=== PATIENT | female | born 1955 | race Caucasian/White ===

== ENCOUNTER 2017-03-30 20:15 | Inpatient (IN) | payer MEDICARE, MEDICAID ==
[~2017-03-30] VITALS: Ht 167.6 cm; Wt 94.6 kg
[~2017-03-30 20:15] MED LIST: ATOR1TAB PO; CHOL20009 PO; CYCL5TAB PO; FENO1TAB42 OR; FURO20TA3 PO; GABA-339 PO; HYDR-3682 PO; INSUINJ7 IJ; LEVEMIR SC; LOSA25TA9 PO; LOSA50TA6 PO; METO-159 PO; METR500T PO; OXYC10TA44 PO; SIMV80TA73 PO
[2017-03-30 21:40] LABS: Basophils # (auto) 0.1 uL; Basophils % (auto) 0.6 % (0.0-2.0); Eosinophils # (auto) 0.2 uL; Hematocrit 42.8 % (36.0-46.0); Hemoglobin 14.5 g/dL (12.2-16.2); Lymphocytes # (auto) 1.3 uL; Lymphocytes % (auto) 14.9 % (10.0-50.0); Mean Corpuscular Hemoglobin 31.7 pg (28.0-32.0); Mean Corpuscular Hgb Conc. 33.9 g/dL (32.0-36.0); Mean Corpuscular Volume 93.4 fL (80.0-100.0); Monocytes # (auto) 0.6 uL; Monocytes % (auto) 6.6 % (0.0-12.0); Neutrophils # (auto) 6.4 uL; Neutrophils % (auto) 75.9 % (37.0-80.0); Platelet Count (auto) 220 10^3/uL (140-450); Red Blood Cells 4.58 10^6/uL (4.0-5.20); Red Cell Distribution Width 13.6 % (11.8-14.3); White Blood Cell 8.4 10^3/uL (4.4-10.8)
[2017-03-30 21:58] LABS: Albumin 4.6 g/dL (3.4-5.0); Anion Gap 14 (5-15); BUN/Creatinine Ratio 31.4; Blood Urea Nitrogen 64 mg/dL (7-18); Calcium 10.4 mg/dL (8.5-10.1); Carbon Dioxide 17 mmol/L (21-32); Chloride 104 mmol/L (98-107); GFR African American 32 mL/min; GFR Non-African American 26 mL/min; Glucose 259 mg/dL (74-106); Potassium 3.7 mmol/L (3.5-5.1); Sodium 135 mmol/L (136-145)
[2017-03-30 22:02] LABS: INR 1.02 (0.9-1.15); Partial Thromboplastin Time 24.7 sec (22.64-33.71); Prothrombin Time 11.1 sec (9.37-12.3)
[2017-03-30 22:12] LABS: Alanine Aminotransferase 35 U/L (13-56); Alkaline Phosphatase 64 U/L (45-117); Aspartate Aminotransferase 23 U/L (15-37); Bilirubin, Total 0.6 mg/dL (0.2-1.0); Total Protein 8.8 g/dL (6.4-8.2)
[2017-03-31] MEDS ORDERED: SODIUM CHLORIDE 0.9% 1,000 ML IV ONE (02:45)
[2017-03-31] MEDS ORDERED: ALUM & MAG HYDROX-SIMETH LIQ(MAALOX) 30 ML PO ONE (03:45)
[2017-03-31] MEDS ORDERED: ONDANSETRON HCL 4 MG/2 ML VIAL ONE (05:38)
[2017-03-31] MEDS ORDERED: HYDROcodone-ACET 5/325MG TAB PO ONE (05:45)
[2017-03-31] MEDS ORDERED: ACETAMINOPHEN 500 MG TAB PO PRN (06:30)
[2017-03-31] MEDS: SODIUM CHLORIDE 0.9% 1,000 ML IV SCH ×3 (06:34→22:00)
[2017-03-31] MEDS ORDERED: DEXTROSE (50%) 50ML SYRG IV PRN (07:15)
[2017-03-31] MEDS ORDERED: MORPHINE SULFATE 10 MG/ML INJ 1ML SDV IV PRN (07:15)
[2017-03-31] MEDS: METOPROLOL TARTRATE 50 MG TAB PO SCH ×2 (11:18→21:23)
[2017-03-31] MEDS: ASPirin-EC 81 mg tab PO SCH (11:18)
[2017-03-31] MEDS: ACCU-CHEK COMFORT CURVE STRIP VI SCH ×3 (11:40→21:25)
[2017-03-31] MEDS: InsuLIN REG 1unit/0.01ml Soln (100units/ml) SC SCH ×3 (11:44→21:25)
[2017-03-31] MEDS: ONDANSETRON HCL 4 MG/2 ML VIAL IV PRN ×2 (12:34→23:56)
[2017-03-31] MEDS: metroNIDAZOLE 500MG/100ML 100 ML IV SCH ×2 (16:17→21:23)
[2017-03-31] MEDS: HYDROcodone-ACET 5/325MG TAB PO PRN (21:23)
[2017-03-31 21:30] VITALS: BP 128/83
[2017-04-01] MEDS ORDERED: MILK OF MAGNESIA 30ML SUSP PO ONE (00:15)
[2017-04-01 05:00] VITALS: BP 101/56
[2017-04-01] MEDS: ACCU-CHEK COMFORT CURVE STRIP VI SCH ×4 (05:56→22:29)
[2017-04-01] MEDS: InsuLIN REG 1unit/0.01ml Soln (100units/ml) SC SCH ×4 (05:57→22:44)
[2017-04-01] MEDS: metroNIDAZOLE 500MG/100ML 100 ML IV SCH ×4 (05:57→23:44)
[2017-04-01 06:29] LABS: Basophils # (auto) 0 uL; Basophils % (auto) 0.7 % (0.0-2.0); Eosinophils # (auto) 0.1 uL; Eosinophils % (auto) 2.5 % (0.0-7.0); Hematocrit 33.6 % (36.0-46.0); Hemoglobin 11.5 g/dL (12.2-16.2); Lymphocytes # (auto) 1.4 uL; Lymphocytes % (auto) 32.8 % (10.0-50.0); Mean Corpuscular Hemoglobin 31.9 pg (28.0-32.0); Mean Corpuscular Hgb Conc. 34.2 g/dL (32.0-36.0); Mean Corpuscular Volume 93.4 fL (80.0-100.0); Monocytes # (auto) 0.4 uL; Monocytes % (auto) 8.7 % (0.0-12.0); Neutrophils # (auto) 2.4 uL; Neutrophils % (auto) 55.3 % (37.0-80.0); Nucleated Red Blood Cells % 0.1 %; Platelet Count (auto) 145 10^3/uL (140-450); Red Cell Distribution Width 13.7 % (11.8-14.3); White Blood Cell 4.4 10^3/uL (4.4-10.8)
[2017-04-01 06:43] LABS: Alanine Aminotransferase 20 U/L (13-56); Albumin 3.3 g/dL (3.4-5.0); Alkaline Phosphatase 52 U/L (45-117); Anion Gap 6 (5-15); Aspartate Aminotransferase 10 U/L (15-37); BUN/Creatinine Ratio 23.7; Bilirubin, Total 0.4 mg/dL (0.2-1.0); Blood Urea Nitrogen 37 mg/dL (7-18); Calcium 8.4 mg/dL (8.5-10.1); Carbon Dioxide 22 mmol/L (21-32); Chloride 113 mmol/L (98-107); Cholesterol 106 mg/dL (< 200); GFR African American 43 mL/min; GFR Non-African American 36 mL/min; Glucose 146 mg/dL (74-106); HDL Cholesterol 24 mg/dL (40-59); LDL Cholesterol 65 mg/dL (< 100); Magnesium 2.1 mg/dL (1.6-2.6); Potassium 3.7 mmol/L (3.5-5.1); Sodium 141 mmol/L (136-145); Total Protein 6.4 g/dL (6.4-8.2); Triglycerides 221 mg/dL (< 150)
[2017-04-01 08:00] VITALS: BP 126/65
[2017-04-01 09:00] VITALS: BP 126/65
[2017-04-01] MEDS: METOPROLOL TARTRATE 50 MG TAB PO SCH ×2 (09:48→22:29)
[2017-04-01] MEDS: ASPirin-EC 81 mg tab PO SCH (09:49)
[2017-04-01] MEDS: SODIUM CHLORIDE 0.9% 1,000 ML IV SCH ×2 (11:33→12:11)
[2017-04-01] MEDS: VANCOMYCIN HCL 125MG/5ML ORAL SOL PO SCH ×3 (11:47→22:29)
[2017-04-01] MEDS: PROMETHAZINE HCL 25 MG/ML 1ML IV PRN ×2 (12:21→22:28)
[2017-04-01 13:00] VITALS: BP 108/70
[2017-04-01 17:00] VITALS: BP 98/47
[2017-04-01 22:00] VITALS: BP 114/63
[2017-04-01] MEDS: HYDROcodone-ACET 5/325MG TAB PO PRN (22:28)
[2017-04-02] MEDS: SODIUM CHLORIDE 0.9% 1,000 ML IV SCH ×2 (04:07→16:36)
[2017-04-02 05:00] VITALS: BP 121/76
[2017-04-02] MEDS: metroNIDAZOLE 500MG/100ML 100 ML IV SCH ×3 (06:12→17:25)
[2017-04-02] MEDS: VANCOMYCIN HCL 125MG/5ML ORAL SOL PO SCH ×4 (06:12→22:14)
[2017-04-02] MEDS: InsuLIN REG 1unit/0.01ml Soln (100units/ml) SC SCH ×4 (06:13→22:27)
[2017-04-02] MEDS: ACCU-CHEK COMFORT CURVE STRIP VI SCH ×4 (06:13→22:15)
[2017-04-02] MEDS: PROMETHAZINE HCL 25 MG/ML 1ML IV PRN ×3 (06:13→18:33)
[2017-04-02 07:10] LABS: BUN/Creatinine Ratio 18.2; Calcium 9.3 mg/dL (8.5-10.1); Potassium 4.6 mmol/L (3.5-5.1)
[2017-04-02 08:00] VITALS: BP 102/42
[2017-04-02 09:00] VITALS: BP 102/42
[2017-04-02] MEDS: METOPROLOL TARTRATE 50 MG TAB PO SCH (10:18)
[2017-04-02] MEDS: ASPirin-EC 81 mg tab PO SCH (10:18)
[2017-04-02 13:00] VITALS: BP 149/71
[2017-04-02 16:44] VITALS: BP 142/79
[2017-04-02] MEDS: ONDANSETRON HCL 4 MG/2 ML VIAL IV PRN (17:26)
[2017-04-02 22:02] VITALS: BP 147/76
[2017-04-02] MEDS: HYDROcodone-ACET 5/325MG TAB PO PRN (22:27)
[2017-04-03] VITALS (7 sets, daily range): BP systolic 127–151; BP diastolic 56–85
[2017-04-03] MEDS: metroNIDAZOLE 500MG/100ML 100 ML IV SCH ×4 (00:23→17:44)
[2017-04-03 05:59] LABS: Basophils # (auto) 0 uL; Basophils % (auto) 0.8 % (0.0-2.0); Eosinophils # (auto) 0.1 uL; Eosinophils % (auto) 2.6 % (0.0-7.0); Hematocrit 31.1 % (36.0-46.0); Hemoglobin 10.7 g/dL (12.2-16.2); Lymphocytes # (auto) 1.6 uL; Lymphocytes % (auto) 38.6 % (10.0-50.0); Mean Corpuscular Hemoglobin 31.9 pg (28.0-32.0); Mean Corpuscular Hgb Conc. 34.5 g/dL (32.0-36.0); Mean Corpuscular Volume 92.4 fL (80.0-100.0); Monocytes # (auto) 0.3 uL; Monocytes % (auto) 6.9 % (0.0-12.0); Neutrophils # (auto) 2.2 uL; Neutrophils % (auto) 51.1 % (37.0-80.0); Nucleated Red Blood Cells % 0.1 %; Platelet Count (auto) 126 10^3/uL (140-450); Red Blood Cells 3.36 10^6/uL (4.0-5.20); Red Cell Distribution Width 13.6 % (11.8-14.3); White Blood Cell 4.2 10^3/uL (4.4-10.8)
[2017-04-03 06:15] LABS: BUN/Creatinine Ratio 14.4; Calcium 7.9 mg/dL (8.5-10.1); Magnesium 1.8 mg/dL (1.6-2.6); Potassium 3.4 mmol/L (3.5-5.1)
[2017-04-03] MEDS: VANCOMYCIN HCL 125MG/5ML ORAL SOL PO SCH ×4 (06:19→22:43)
[2017-04-03] MEDS: ACCU-CHEK COMFORT CURVE STRIP VI SCH ×4 (06:19→22:43)
[2017-04-03] MEDS: SODIUM CHLORIDE 0.9% 1,000 ML IV SCH ×2 (06:19→10:40)
[2017-04-03] MEDS: InsuLIN REG 1unit/0.01ml Soln (100units/ml) SC SCH ×4 (06:49→22:43)
[2017-04-03] MEDS: ASPirin-EC 81 mg tab PO SCH (09:40)
[2017-04-03] MEDS ORDERED: POTASSIUM CHL 20 Meq TABLET PO ONE (10:30)
[2017-04-03] MEDS ORDERED: MAGNESIUM SULFATE 1GM/100ML 100 ML IV ONE (10:30)
[2017-04-03] MEDS: PROMETHAZINE HCL 25 MG/ML 1ML IV PRN (12:12)
[2017-04-03] MEDS: ONDANSETRON HCL 4 MG/2 ML VIAL IV PRN (22:43)
[2017-04-04] VITALS (7 sets, daily range): BP systolic 126–155; BP diastolic 67–82
[2017-04-04] MEDS: metroNIDAZOLE 500MG/100ML 100 ML IV SCH ×4 (00:38→17:58)
[2017-04-04 05:42] LABS: Hemoglobin 11.7 g/dL (12.2-16.2)
[2017-04-04] MEDS: PROMETHAZINE HCL 25 MG/ML 1ML IV PRN ×2 (05:43→17:58)
[2017-04-04] MEDS: VANCOMYCIN HCL 125MG/5ML ORAL SOL PO SCH ×4 (05:43→21:58)
[2017-04-04 06:00] LABS: BUN/Creatinine Ratio 12.9; Calcium 8.4 mg/dL (8.5-10.1); Magnesium 1.9 mg/dL (1.6-2.6); Potassium 3.7 mmol/L (3.5-5.1)
[2017-04-04] MEDS: InsuLIN REG 1unit/0.01ml Soln (100units/ml) SC SCH ×4 (06:30→21:58)
[2017-04-04] MEDS: SODIUM CHLORIDE 0.9% 1,000 ML IV SCH (06:30)
[2017-04-04] MEDS: ACCU-CHEK COMFORT CURVE STRIP VI SCH ×4 (06:31→21:58)
[2017-04-04] MEDS: HYDROcodone-ACET 5/325MG TAB PO PRN (21:59)
[2017-04-05] MEDS: metroNIDAZOLE 500MG/100ML 100 ML IV SCH ×3 (00:12→11:54)
[2017-04-05] MEDS: SODIUM CHLORIDE 0.9% 1,000 ML IV SCH (02:34)
[2017-04-05 05:00] VITALS: BP 149/80
[2017-04-05] MEDS: VANCOMYCIN HCL 125MG/5ML ORAL SOL PO SCH ×2 (06:00→11:55)
[2017-04-05] MEDS: InsuLIN REG 1unit/0.01ml Soln (100units/ml) SC SCH ×2 (06:38→12:00)
[2017-04-05] MEDS: ACCU-CHEK COMFORT CURVE STRIP VI SCH ×2 (06:38→12:00)
[2017-04-05 08:00] VITALS: BP 143/81
[2017-04-05 09:00] VITALS: BP 143/81
[2017-04-05] MEDS: PROMETHAZINE HCL 25 MG/ML 1ML IV PRN (11:54)
[2017-04-05 13:00] VITALS: BP 143/84
[2017-04-05 13:33] VITALS: BP 143/84
== END 2017-04-05 14:10 | disposition home or self-care (01) | DRG 371 ==
LOC: ER 20:15 → OVERFLOW 20:16 → WEST WING 03-31 14:30
PROVIDERS: ADMIT Nurse Practitioner Family; ATTEND Internal Medicine
DX: A04.71 Enterocolitis due to Clostridium difficile, recurrent (principal); G93.41 Metabolic encephalopathy; N17.0 Acute kidney failure with tubular necrosis; E11.21 Type 2 diabetes mellitus with diabetic nephropathy; E11.22 Type 2 diabetes mellitus with diabetic chronic kidney disease; E11.65 Type 2 diabetes mellitus with hyperglycemia; E66.9 Obesity, unspecified; E78.5 Hyperlipidemia, unspecified; E86.0 Dehydration; I12.9 Hypertensive chronic kidney disease with stage 1 through stage 4 chronic kidney disease, or unspecified chronic kidney disease; I25.10 Atherosclerotic heart disease of native coronary artery without angina pectoris; M54.9 Dorsalgia, unspecified; G89.29 Other chronic pain; K29.00 Acute gastritis without bleeding; K57.30 Diverticulosis of large intestine without perforation or abscess without bleeding; N18.9 Chronic kidney disease, unspecified; N20.0 Calculus of kidney; Z79.4 Long term (current) use of insulin; Z79.899 Other long term (current) drug therapy; Z82.49 Family history of ischemic heart disease and other diseases of the circulatory system; Z83.3 Family history of diabetes mellitus; Z86.19 Personal history of other infectious and parasitic diseases; Z90.710 Acquired absence of both cervix and uterus; Z88.8 Allergy status to other drugs, medicaments and biological substances; Z90.49 Acquired absence of other specified parts of digestive tract
CPT/HCPCS: 36415; 71045; 74176; 80048; 80053; 80061; 82962; 83036; 83690; 83735; 83880; 84484; 85014; 85018; 85025; 85610; 85730; 87045; 87493; 87899; 93005; 96361; 96374; J1815; J2405; J3490

== ENCOUNTER 2019-04-24 18:23 | Inpatient (IN) | payer MEDICARE, MEDICAID ==
[~2019-04-24] VITALS: Ht 167.6 cm; Wt 65.9 kg
[~2019-04-24 18:23] MED LIST changes: +FENO145T27 OR; -FENO1TAB42 OR; +LOSA-69 PO; +LOSA25TA38 PO; -LOSA25TA9 PO; -LOSA50TA6 PO
[2019-04-24] MEDS ORDERED: IPRATROPIUM BROM 0.5 MG/2.5ML INH SOL NEB ONE (18:45)
[2019-04-24] MEDS ORDERED: FUROSEMIDE 40 MG/4 ML VIAL IV ONE (18:45)
[2019-04-24] MEDS ORDERED: ALBUTEROL SULF 2.5 MG/0.5ML(0.5%) NEB SOLN NEB ONE (18:45)
[2019-04-24 19:13] LABS: INR 0.98 (0.9-1.15); Partial Thromboplastin Time 26.8 sec (23.64-32.05)
[2019-04-24 19:14] LABS: Basophils # (auto) 0 uL; Basophils % (auto) 0.2 % (0.0-2.0); Eosinophils # (auto) 0 uL; Hematocrit 42.2 % (36.0-46.0); Hemoglobin 13.8 g/dL (12.2-16.2); Lymphocytes # (auto) 0.4 uL; Mean Corpuscular Hemoglobin 31.2 pg (28.0-32.0); Mean Corpuscular Hgb Conc. 32.8 g/dL (32.0-36.0); Mean Corpuscular Volume 94.9 fL (80.0-100.0); Monocytes # (auto) 0.7 uL; Monocytes % (auto) 7.8 % (0.0-12.0); Neutrophils # (auto) 8.3 uL; Nucleated Red Blood Cells % 0.1 %; Platelet Count (auto) 183 10^3/uL (140-450); Red Blood Cells 4.44 10^6/uL (4.0-5.20); Red Cell Distribution Width 14.1 % (11.8-14.3); White Blood Cell 9.4 10^3/uL (4.4-10.8)
[2019-04-24 19:25] LABS: Albumin 3.2 g/dL (3.4-5.0); Anion Gap 13 (5-15); Blood Urea Nitrogen 45 mg/dL (7-18); Calcium 9.9 mg/dL (8.5-10.1); Carbon Dioxide 20 mmol/L (21-32); Chloride 95 mmol/L (98-107); Magnesium 2.3 mg/dL (1.6-2.6); Potassium 4.5 mmol/L (3.5-5.1); Sodium 128 mmol/L (136-145)
[2019-04-24 19:33] LABS: Alanine Aminotransferase 33 U/L (13-56); Alkaline Phosphatase 72 U/L (45-117); Aspartate Aminotransferase 35 U/L (15-37); BUN/Creatinine Ratio 21.6; Bilirubin, Total 0.5 mg/dL (0.2-1.0); GFR African American 31 mL/min; GFR Non-African American 26 mL/min; Total Protein 8.6 g/dL (6.4-8.2)
[2019-04-24 19:35] LABS: Glucose 574 mg/dL (74-106)
[2019-04-24] MEDS ORDERED: InsuLIN REG 1unit/0.01ml Soln (100units/ml) IV ONE ×2 (19:45→23:45)
[2019-04-24] MEDS ORDERED: SODIUM CHLORIDE 0.9% 1,000 ML IV ONE (19:45)
[2019-04-24 20:03] LABS: Lactic Acid w/Reflex 2.9 mmol/L (0.4-2.0)
[2019-04-24] MEDS ORDERED: ETOMIDATE (2MG/ML) 20ML VIAL IV ONE ×2 (20:24→20:30)
[2019-04-24] MEDS ORDERED: SUCCINYLCHOLINE CHLORIDE 20 MG/ML 10ML VIAL IV ONE ×2 (20:24→20:30)
[2019-04-24] MEDS ORDERED: PROPOFOL 100 ML IV ONE (20:24)
[2019-04-24] MEDS ORDERED: SODIUM CHLORIDE 0.9% 2,250 ML IV ONE (20:30)
[2019-04-24] MEDS: PROPOFOL 100 ML IV SCH (20:36)
[2019-04-24 20:40] VITALS: BP 160/90
[2019-04-24] MEDS ORDERED: PIPERACILLIN-TAZOB 3.375GM 100 ML IV ONE (20:45)
[2019-04-24] MEDS ORDERED: VANCOMYCIN PER PHARMACY 0 MG IV SCH (20:45)
[2019-04-24] MEDS ORDERED: MIDAZOLAM DRIP 50 mg/50mL 50 ML IV ONE (20:56)
[2019-04-24] MEDS: MIDAZOLAM DRIP 50 mg/50mL 50 ML IV SCH ×2 (20:59→21:57)
[2019-04-24] MEDS ORDERED: VANCOMYCIN 1GM/250ML 250 ML IV ONE (21:15)
[2019-04-24] MEDS ORDERED: NOREPINEPHRINE 8 MG/250ML KIT 250 ML IV ONE (22:06)
[2019-04-24] MEDS: NOREPINEPHRINE 8 MG/250ML KIT 250 ML IV SCH (22:16)
[2019-04-24 22:39] VITALS: BP 108/73
[2019-04-24 23:26] LABS: Urine Amorphous Crystal FEW /hpf (None Seen); Urine Bacteria FEW /hpf (None Seen); Urine Blood Negative /uL (Negative); Urine Hyaline Cast FEW /lpf (0 - 2); Urine Specific Gravity 1.019 (1.001-1.035); Urine WBC 2 /hpf (0 - 5)
[2019-04-25] VITALS (43 sets, daily range): BP systolic 96–134; BP diastolic 51–72
[2019-04-25] MEDS ORDERED: DEXTROSE (50%) 50ML SYRG IV PRN (01:45)
[2019-04-25] MEDS ORDERED: NITROGLYCERIN 0.4 MG SL TAB SL PRN (01:45)
[2019-04-25] MEDS ORDERED: MORPHINE SULFATE 4 MG/ML SYR/VIAL IV PRN (01:45)
[2019-04-25] MEDS ORDERED: ONDANSETRON HCL 4 MG/2 ML VIAL IV PRN (01:45)
[2019-04-25 01:57] LABS: Lactic Acid w/Reflex 2.2 mmol/L (0.4-2.0)
[2019-04-25] MEDS: SODIUM CHLORIDE 0.9% 1,000 ML IV SCH ×2 (02:28→17:14)
[2019-04-25] MEDS ORDERED: SODIUM BICARBONATE 50ML VIAL 50 ML in SOD CHL 0.45% 1,000 ML IV ONE (03:30)
[2019-04-25] MEDS ORDERED: SODIUM BICARBONATE 8.4% INJ 50ML SYRINGE ONE (03:38)
[2019-04-25] MEDS: InsuLIN REG 1unit/0.01ml Soln (100units/ml) SC SCH ×6 (04:10→23:55)
[2019-04-25] MEDS: ACCU-CHEK COMFORT CURVE STRIP VI SCH ×6 (04:10→23:56)
[2019-04-25] MEDS ORDERED: PIPERACILLIN-TAZOB 2.25GM 50 ML IV SCH (06:00)
[2019-04-25] MEDS ORDERED: PIPERACILLIN-TAZOB 3.375GM 100 ML IV SCH (06:00)
[2019-04-25] MEDS ORDERED: ACETAMINOPHEN 650 MG RECT SUPP PR PRN (06:45)
[2019-04-25 09:28] LABS: Basophils # (auto) 0 uL; Basophils % (auto) 0.2 % (0.0-2.0); Eosinophils # (auto) 0 uL; Eosinophils % (auto) 0.3 % (0.0-7.0); Hematocrit 30.2 % (36.0-46.0); Hemoglobin 10.1 g/dL (12.2-16.2); Lymphocytes # (auto) 0.3 uL; Lymphocytes % (auto) 12.6 % (10.0-50.0); Mean Corpuscular Hemoglobin 30.7 pg (28.0-32.0); Mean Corpuscular Hgb Conc. 33.4 g/dL (32.0-36.0); Mean Corpuscular Volume 91.8 fL (80.0-100.0); Monocytes # (auto) 0.2 uL; Monocytes % (auto) 9.3 % (0.0-12.0); Neutrophils # (auto) 1.6 uL; Neutrophils % (auto) 77.6 % (37.0-80.0); Nucleated Red Blood Cells % 0.2 %; Platelet Count (auto) 87 10^3/uL (140-450); Red Blood Cells 3.29 10^6/uL (4.0-5.20); Red Cell Distribution Width 13.9 % (11.8-14.3); White Blood Cell 2.1 10^3/uL (4.4-10.8)
[2019-04-25 09:49] LABS: BUN/Creatinine Ratio 23.1; Calcium 8.4 mg/dL (8.5-10.1); Potassium 3.5 mmol/L (3.5-5.1)
[2019-04-25] MEDS ORDERED: ENOXAPARIN SOD 80 MG/0.8ML SYRINGE SC SCH (10:00)
[2019-04-25] MEDS: OSELTAMIVIR 30MG/5ML ORAL SUSP GT SCH (11:25)
[2019-04-25] MEDS: VANCOMYCIN 1GM/250ML 250 ML IV SCH (13:13)
[2019-04-25] MEDS: PIPERACILLIN-TAZOB 2.25GM 50 ML IV SCH ×2 (17:13→21:04)
[2019-04-25] MEDS ORDERED: AMLO5TAB15 PO (18:32)
[2019-04-25] MEDS ORDERED: POTA1080 PO (18:32)
[2019-04-25] MEDS ORDERED: FLUO-125 PO (18:32)
[2019-04-25] MEDS ORDERED: METO-158 PO (18:32)
[2019-04-25] MEDS ORDERED: LOSA-39 PO (18:32)
[2019-04-25] MEDS ORDERED: LOPE2CAP PO (18:32)
[2019-04-25] MEDS ORDERED: MIRT1TAB38 PO (18:32)
[2019-04-25] MEDS ORDERED: BALS750C6 PO (18:32)
[2019-04-25] MEDS ORDERED: HYDR12.56 PO (18:32)
[2019-04-25] MEDS ORDERED: LORA-622 PO (18:32)
[2019-04-25] MEDS: NOREPINEPHRINE 8 MG/250ML KIT 250 ML IV SCH (22:03)
[2019-04-25] MEDS: PROPOFOL 100 ML IV SCH (22:29)
[2019-04-26] VITALS (68 sets, daily range): BP systolic 102–163; BP diastolic 36–81
[2019-04-26] MEDS: MIDAZOLAM DRIP 50 mg/50mL 50 ML IV SCH ×2 (00:51→13:49)
[2019-04-26] MEDS: PIPERACILLIN-TAZOB 2.25GM 50 ML IV SCH ×3 (03:00→15:36)
[2019-04-26] MEDS: ACCU-CHEK COMFORT CURVE STRIP VI SCH ×5 (04:10→20:14)
[2019-04-26] MEDS: InsuLIN REG 1unit/0.01ml Soln (100units/ml) SC SCH ×5 (04:10→20:14)
[2019-04-26 04:51] LABS: Basophils # (auto) 0 uL; Basophils % (auto) 0.3 % (0.0-2.0); Eosinophils # (auto) 0 uL; Eosinophils % (auto) 0.4 % (0.0-7.0); Hematocrit 29.8 % (36.0-46.0); Hemoglobin 10.2 g/dL (12.2-16.2); Lymphocytes # (auto) 0.3 uL; Lymphocytes % (auto) 10.2 % (10.0-50.0); Mean Corpuscular Hemoglobin 31.7 pg (28.0-32.0); Mean Corpuscular Hgb Conc. 34.4 g/dL (32.0-36.0); Mean Corpuscular Volume 92.1 fL (80.0-100.0); Monocytes # (auto) 0.2 uL; Monocytes % (auto) 6.7 % (0.0-12.0); Neutrophils # (auto) 2.3 uL; Neutrophils % (auto) 82.4 % (37.0-80.0); Platelet Count (auto) 94 10^3/uL (140-450); Red Blood Cells 3.23 10^6/uL (4.0-5.20); Red Cell Distribution Width 14.2 % (11.8-14.3); White Blood Cell 2.8 10^3/uL (4.4-10.8)
[2019-04-26 05:09] LABS: Albumin 1.9 g/dL (3.4-5.0); Calcium 8.4 mg/dL (8.5-10.1); Potassium 3.4 mmol/L (3.5-5.1)
[2019-04-26 05:14] LABS: BUN/Creatinine Ratio 19.6; Bilirubin, Total 0.3 mg/dL (0.2-1.0); Total Protein 5.8 g/dL (6.4-8.2)
[2019-04-26] MEDS: OSELTAMIVIR 30MG/5ML ORAL SUSP GT SCH (12:13)
[2019-04-26] MEDS: ENOXAPARIN SOD 40 MG/0.4 ML SYRINGE SC SCH (12:13)
[2019-04-26] MEDS: PROPOFOL 100 ML IV SCH (13:48)
[2019-04-26] MEDS: VANCOMYCIN 1GM/250ML 250 ML IV SCH (13:50)
[2019-04-26] MEDS ORDERED: POTASSIUM EFFERVESENT TAB 25 MEQ GT ONE (15:00)
[2019-04-26] MEDS ORDERED: PANTOPRAZOLE 40 MG/10 ML VIAL INJ IV ONE (15:00)
[2019-04-26] MEDS ORDERED: Glucerna 1.2 Cal 1Liter BOTTLE GT SCH (16:00)
[2019-04-26] MEDS: amLODIPine BESYLATE 5 MG TAB PO SCH (17:28)
[2019-04-26] MEDS: fentaNYL Drip 2500mCg/250mlNS 250 ML IV SCH (17:29)
[2019-04-26] MEDS: PIPERACILLIN-TAZOB 3.375GM 100 ML IV SCH (20:14)
[2019-04-26] MEDS: NOREPINEPHRINE 8 MG/250ML KIT 250 ML IV SCH (20:14)
[2019-04-27] VITALS (103 sets, daily range): BP systolic 104–167; BP diastolic 23–96
[2019-04-27] MEDS: ACCU-CHEK COMFORT CURVE STRIP VI SCH ×6 (00:06→20:00)
[2019-04-27] MEDS: InsuLIN REG 1unit/0.01ml Soln (100units/ml) SC SCH ×6 (00:06→20:00)
[2019-04-27] MEDS: PIPERACILLIN-TAZOB 3.375GM 100 ML IV SCH ×4 (02:43→20:51)
[2019-04-27] MEDS: PROPOFOL 100 ML IV SCH ×2 (03:36→18:19)
[2019-04-27 04:13] LABS: Calcium 8.6 mg/dL (8.5-10.1); Potassium 3.9 mmol/L (3.5-5.1)
[2019-04-27 04:55] LABS: Basophils # (auto) 0 uL; Basophils % (auto) 0.7 % (0.0-2.0); Eosinophils # (auto) 0 uL; Eosinophils % (auto) 1.1 % (0.0-7.0); Hematocrit 31.3 % (36.0-46.0); Hemoglobin 10.9 g/dL (12.2-16.2); Lymphocytes # (auto) 0.6 uL; Mean Corpuscular Hemoglobin 31.9 pg (28.0-32.0); Mean Corpuscular Hgb Conc. 34.7 g/dL (32.0-36.0); Mean Corpuscular Volume 91.7 fL (80.0-100.0); Monocytes # (auto) 0.3 uL; Monocytes % (auto) 9.2 % (0.0-12.0); Neutrophils # (auto) 2.7 uL; Nucleated Red Blood Cells % 0.1 %; Platelet Count (auto) 115 10^3/uL (140-450); Red Blood Cells 3.41 10^6/uL (4.0-5.20); White Blood Cell 3.7 10^3/uL (4.4-10.8)
[2019-04-27] MEDS: PANTOPRAZOLE 40 MG/10 ML VIAL INJ IV SCH (10:52)
[2019-04-27] MEDS: amLODIPine BESYLATE 5 MG TAB PO SCH (10:53)
[2019-04-27] MEDS: ENOXAPARIN SOD 40 MG/0.4 ML SYRINGE SC SCH (10:53)
[2019-04-27] MEDS: OSELTAMIVIR 30MG/5ML ORAL SUSP GT SCH (11:08)
[2019-04-27] MEDS: fentaNYL Drip 2500mCg/250mlNS 250 ML IV SCH (18:11)
[2019-04-27] MEDS ORDERED: FUROSEMIDE 40 MG/4 ML VIAL IV ONE (19:00)
[2019-04-27] MEDS ORDERED: DexMEDEtomidine 400 MCG in D5W 5% 96 ML IV SCH (20:08)
[2019-04-27] MEDS: MIDAZOLAM DRIP 50 mg/50mL 50 ML IV SCH (21:41)
[2019-04-28] VITALS (78 sets, daily range): BP systolic 110–159; BP diastolic 25–93
[2019-04-28] MEDS: ACCU-CHEK COMFORT CURVE STRIP VI SCH ×6 (00:12→20:17)
[2019-04-28] MEDS: InsuLIN REG 1unit/0.01ml Soln (100units/ml) SC SCH ×6 (00:19→20:17)
[2019-04-28] MEDS: PIPERACILLIN-TAZOB 3.375GM 100 ML IV SCH ×4 (03:29→20:30)
[2019-04-28 04:25] LABS: Hematocrit 31.7 % (36.0-46.0); Hemoglobin 10.7 g/dL (12.2-16.2); Mean Corpuscular Hemoglobin 31.1 pg (28.0-32.0); Mean Corpuscular Hgb Conc. 33.7 g/dL (32.0-36.0); Mean Corpuscular Volume 92.4 fL (80.0-100.0); Platelet Count (auto) 123 10^3/uL (140-450); Red Blood Cells 3.43 10^6/uL (4.0-5.20); Red Cell Distribution Width 13.8 % (11.8-14.3); White Blood Cell 3.4 10^3/uL (4.4-10.8)
[2019-04-28 04:34] LABS: Band Neutrophils % (manual) 0
[2019-04-28 04:35] LABS: Basophils % (manual) 0 (0.0-2.0); Blast Cells 0; Metamyelocytes % 0; Myelocytes % 0; Promyelocytes % 0; Reactive Lymphocytes 0
[2019-04-28 04:46] LABS: Potassium 3.5 mmol/L (3.5-5.1)
[2019-04-28 04:50] LABS: BUN/Creatinine Ratio 19.2
[2019-04-28 05:16] LABS: Eosinophils % (manual) 1 (0-7); Lymphocytes % (manual) 30 (10.0-50.0); Monocytes % (manual) 7 (0-12)
[2019-04-28] MEDS: NOREPINEPHRINE 8 MG/250ML KIT 250 ML IV SCH (05:47)
[2019-04-28] MEDS: PANTOPRAZOLE 40 MG/10 ML VIAL INJ IV SCH (09:44)
[2019-04-28] MEDS: amLODIPine BESYLATE 5 MG TAB PO SCH (09:45)
[2019-04-28] MEDS: OSELTAMIVIR 30MG/5ML ORAL SUSP GT SCH (09:46)
[2019-04-28] MEDS: ENOXAPARIN SOD 40 MG/0.4 ML SYRINGE SC SCH (09:46)
[2019-04-28] MEDS: POTASSIUM CHL 20MEQ/100ML 100 ML IV SCH ×2 (13:27→15:35)
[2019-04-28] MEDS ORDERED: ACETAMINOPHEN 650 mg PER 20 mL UD ONE (15:08)
[2019-04-28] MEDS ORDERED: ACETAMINOPHEN 650 mg PER 20 mL UD GT PRN (15:15)
[2019-04-28] MEDS ORDERED: OXYCODONE W/ ACETAMINOPHEN 5/325MG TABLET ONE (15:41)
[2019-04-28] MEDS: FUROSEMIDE 40 MG/4 ML VIAL IV SCH (18:19)
[2019-04-28] MEDS: MORPHINE SULF INJ 2 MG/ML SYRINGE 1ML IV PRN (18:54)
[2019-04-29] MEDS: ACCU-CHEK COMFORT CURVE STRIP VI SCH ×7 (00:13→23:52)
[2019-04-29] MEDS: PIPERACILLIN-TAZOB 3.375GM 100 ML IV SCH ×4 (03:34→20:46)
[2019-04-29] MEDS: InsuLIN REG 1unit/0.01ml Soln (100units/ml) SC SCH ×7 (03:41→23:52)
[2019-04-29 05:07] VITALS: BP 146/92
[2019-04-29] MEDS: ALBUTEROL SULF 2.5 MG/0.5ML(0.5%) NEB SOLN NEB SCH ×4 (07:53→23:58)
[2019-04-29 09:00] VITALS: BP 145/90
[2019-04-29] MEDS: OXYCODONE W/ ACETAMINOPHEN 5/325MG TABLET PO PRN ×2 (09:15→17:20)
[2019-04-29] MEDS: ENOXAPARIN SOD 40 MG/0.4 ML SYRINGE SC SCH (09:46)
[2019-04-29] MEDS: PANTOPRAZOLE 40 MG/10 ML VIAL INJ IV SCH (09:46)
[2019-04-29] MEDS: amLODIPine BESYLATE 5 MG TAB PO SCH (09:46)
[2019-04-29] MEDS: OSELTAMIVIR 30MG/5ML ORAL SUSP GT SCH (10:00)
[2019-04-29 13:00] VITALS: BP 146/88
[2019-04-29 17:00] VITALS: BP 137/89
[2019-04-29] MEDS: FUROSEMIDE 40 MG/4 ML VIAL IV SCH (18:43)
[2019-04-29 22:00] VITALS: BP 140/90
[2019-04-29] MEDS: MORPHINE SULF INJ 2 MG/ML SYRINGE 1ML IV PRN (22:48)
[2019-04-30] MEDS: ACCU-CHEK COMFORT CURVE STRIP VI SCH ×5 (03:38→20:04)
[2019-04-30] MEDS: PIPERACILLIN-TAZOB 3.375GM 100 ML IV SCH ×4 (03:38→20:04)
[2019-04-30] MEDS: InsuLIN REG 1unit/0.01ml Soln (100units/ml) SC SCH ×5 (03:48→20:00)
[2019-04-30 05:00] VITALS: BP 150/86
[2019-04-30] MEDS: MORPHINE SULF INJ 2 MG/ML SYRINGE 1ML IV PRN ×3 (06:27→20:04)
[2019-04-30] MEDS: ALBUTEROL SULF 2.5 MG/0.5ML(0.5%) NEB SOLN NEB SCH ×3 (07:04→18:08)
[2019-04-30 07:40] LABS: Potassium 3.6 mmol/L (3.5-5.1)
[2019-04-30 07:50] LABS: BUN/Creatinine Ratio 19.7; Calcium 9.8 mg/dL (8.5-10.1)
[2019-04-30 07:54] LABS: Basophils # (auto) 0 uL; Basophils % (auto) 0.4 % (0.0-2.0); Eosinophils # (auto) 0 uL; Eosinophils % (auto) 0.5 % (0.0-7.0); Hematocrit 37.3 % (36.0-46.0); Hemoglobin 12.7 g/dL (12.2-16.2); Lymphocytes # (auto) 1.2 uL; Lymphocytes % (auto) 19.4 % (10.0-50.0); Mean Corpuscular Hemoglobin 31.1 pg (28.0-32.0); Mean Corpuscular Volume 91.6 fL (80.0-100.0); Monocytes # (auto) 0.4 uL; Monocytes % (auto) 6.3 % (0.0-12.0); Neutrophils # (auto) 4.5 uL; Neutrophils % (auto) 73.4 % (37.0-80.0); Nucleated Red Blood Cells % 0.2 %; Platelet Count (auto) 192 10^3/uL (140-450); Red Blood Cells 4.07 10^6/uL (4.0-5.20); Red Cell Distribution Width 13.5 % (11.8-14.3); White Blood Cell 6.2 10^3/uL (4.4-10.8)
[2019-04-30 08:41] VITALS: BP 142/81
[2019-04-30] MEDS: ENOXAPARIN SOD 40 MG/0.4 ML SYRINGE SC SCH (10:34)
[2019-04-30] MEDS: PANTOPRAZOLE 40 MG/10 ML VIAL INJ IV SCH (10:34)
[2019-04-30] MEDS: amLODIPine BESYLATE 5 MG TAB PO SCH (10:35)
[2019-04-30 12:21] VITALS: BP 148/94
[2019-04-30 16:52] VITALS: BP 137/80
[2019-04-30] MEDS: FUROSEMIDE 40 MG/4 ML VIAL IV SCH (18:28)
[2019-04-30 19:02] VITALS: BP 136/78
[2019-04-30] MEDS: INSULIN LANTUS (GLARGINE) 1 /0.01ml (100units/ml) SC SCH (20:29)
[2019-04-30 21:00] VITALS: BP 154/81
[2019-05-01] MEDS: InsuLIN REG 1unit/0.01ml Soln (100units/ml) SC SCH ×7 (00:02→23:08)
[2019-05-01] MEDS: ACCU-CHEK COMFORT CURVE STRIP VI SCH ×7 (00:02→23:08)
[2019-05-01] MEDS: ALBUTEROL SULF 2.5 MG/0.5ML(0.5%) NEB SOLN NEB SCH ×4 (00:11→18:33)
[2019-05-01] MEDS: PIPERACILLIN-TAZOB 3.375GM 100 ML IV SCH ×5 (04:00→21:12)
[2019-05-01 04:30] VITALS: BP 137/80
[2019-05-01 09:00] VITALS: BP 137/83
[2019-05-01] MEDS: PANTOPRAZOLE 40 MG/10 ML VIAL INJ IV SCH (09:47)
[2019-05-01] MEDS: amLODIPine BESYLATE 5 MG TAB PO SCH (09:47)
[2019-05-01] MEDS: ENOXAPARIN SOD 40 MG/0.4 ML SYRINGE SC SCH (09:47)
[2019-05-01] MEDS: OXYCODONE W/ ACETAMINOPHEN 5/325MG TABLET PO PRN (10:54)
[2019-05-01 13:00] VITALS: BP 138/80
[2019-05-01] MEDS: MORPHINE SULF INJ 2 MG/ML SYRINGE 1ML IV PRN ×2 (14:02→21:13)
[2019-05-01 17:00] VITALS: BP 138/75
[2019-05-01 21:00] VITALS: BP 135/62
[2019-05-01] MEDS: INSULIN LANTUS (GLARGINE) 1 /0.01ml (100units/ml) SC SCH (23:08)
[2019-05-02] MEDS: ALBUTEROL SULF 2.5 MG/0.5ML(0.5%) NEB SOLN NEB SCH ×6 (01:32→23:28)
[2019-05-02] MEDS: PIPERACILLIN-TAZOB 3.375GM 100 ML IV SCH ×4 (03:41→20:56)
[2019-05-02] MEDS: ACCU-CHEK COMFORT CURVE STRIP VI SCH ×6 (03:42→23:35)
[2019-05-02] MEDS: InsuLIN REG 1unit/0.01ml Soln (100units/ml) SC SCH ×6 (04:00→23:35)
[2019-05-02 05:00] VITALS: BP 139/86
[2019-05-02 06:24] LABS: Hematocrit 34.4 % (36.0-46.0); Hemoglobin 11.6 g/dL (12.2-16.2); Mean Corpuscular Hemoglobin 31.2 pg (28.0-32.0); Mean Corpuscular Hgb Conc. 33.9 g/dL (32.0-36.0); Platelet Count (auto) 194 10^3/uL (140-450); Red Blood Cells 3.74 10^6/uL (4.0-5.20); Red Cell Distribution Width 13.2 % (11.8-14.3); White Blood Cell 5.2 10^3/uL (4.4-10.8)
[2019-05-02 06:27] LABS: Calcium 9.8 mg/dL (8.5-10.1)
[2019-05-02 06:29] LABS: BUN/Creatinine Ratio 21.9
[2019-05-02 06:31] LABS: Basophils % (manual) 0 (0.0-2.0); Blast Cells 0; Eosinophils % (manual) 0 (0-7); Metamyelocytes % 0; Myelocytes % 0; Promyelocytes % 0; Reactive Lymphocytes 0
[2019-05-02 07:36] LABS: Band Neutrophils % (manual) 2; Lymphocytes % (manual) 29 (10.0-50.0); Monocytes % (manual) 5 (0-12)
[2019-05-02 09:00] VITALS: BP 121/67
[2019-05-02] MEDS: ENOXAPARIN SOD 40 MG/0.4 ML SYRINGE SC SCH (09:27)
[2019-05-02] MEDS: PANTOPRAZOLE 40 MG/10 ML VIAL INJ IV SCH (09:31)
[2019-05-02] MEDS: amLODIPine BESYLATE 5 MG TAB PO SCH (09:31)
[2019-05-02 13:00] VITALS: BP 149/82
[2019-05-02] MEDS ORDERED: LOPERAMIDE HCL 2 MG CAP PO ONE (13:45)
[2019-05-02 16:47] VITALS: BP 145/73
[2019-05-02] MEDS: INSULIN LANTUS (GLARGINE) 1 /0.01ml (100units/ml) SC SCH (20:20)
[2019-05-02 22:00] VITALS: BP 113/66
[2019-05-03] MEDS: PIPERACILLIN-TAZOB 3.375GM 100 ML IV SCH ×2 (03:28→09:29)
[2019-05-03] MEDS: ACCU-CHEK COMFORT CURVE STRIP VI SCH ×3 (04:00→12:01)
[2019-05-03] MEDS: InsuLIN REG 1unit/0.01ml Soln (100units/ml) SC SCH ×3 (04:01→13:18)
[2019-05-03 05:00] VITALS: BP 139/82
[2019-05-03] MEDS: ALBUTEROL SULF 2.5 MG/0.5ML(0.5%) NEB SOLN NEB SCH ×2 (07:05→11:08)
[2019-05-03 09:00] VITALS: BP_SYST 128; BP_SYST 152; BP_DIAS 75; BP_DIAS 78
[2019-05-03] MEDS: PANTOPRAZOLE 40 MG/10 ML VIAL INJ IV SCH (09:29)
[2019-05-03] MEDS: amLODIPine BESYLATE 5 MG TAB PO SCH (09:29)
[2019-05-03] MEDS: ENOXAPARIN SOD 40 MG/0.4 ML SYRINGE SC SCH (09:29)
[2019-05-03 14:19] VITALS: BP 150/77
== END 2019-05-03 15:44 | disposition home or self-care (01) | DRG 871 ==
LOC: ER 18:23 → TELE 18:24 → ICU WEST 04-25 15:32 → TELE-EAST 04-28 21:20
PROVIDERS: ADMIT Hospitalist; ATTEND Internal Medicine Nephrology
PROC: 02HV33Z Insertion of Infusion Device into Superior Vena Cava, Percutaneous Approach (ICD-10-PCS; principal; 2019-04-25)
PROC: 5A1945Z Respiratory Ventilation, 24-96 Consecutive Hours (ICD-10-PCS; 2019-04-25)
PROC: 0BH17EZ Insertion of Endotracheal Airway into Trachea, Via Natural or Artificial Opening (ICD-10-PCS; 2019-04-25)
DX: A41.9 Sepsis, unspecified organism (principal); N17.0 Acute kidney failure with tubular necrosis; J96.01 Acute respiratory failure with hypoxia; J10.08 Influenza due to other identified influenza virus with other specified pneumonia; J15.6 Pneumonia due to other Gram-negative bacteria; D61.818 Other pancytopenia; J98.11 Atelectasis; I13.0 Hypertensive heart and chronic kidney disease with heart failure and stage 1 through stage 4 chronic kidney disease, or unspecified chronic kidney disease; Z99.11 Dependence on respirator [ventilator] status; E11.65 Type 2 diabetes mellitus with hyperglycemia; E11.22 Type 2 diabetes mellitus with diabetic chronic kidney disease; J10.1 Influenza due to other identified influenza virus with other respiratory manifestations; E87.6 Hypokalemia; E78.5 Hyperlipidemia, unspecified; N18.3 Chronic kidney disease, stage 3 (moderate); I50.9 Heart failure, unspecified; E66.9 Obesity, unspecified; J44.9 Chronic obstructive pulmonary disease, unspecified; Z82.49 Family history of ischemic heart disease and other diseases of the circulatory system; Z83.3 Family history of diabetes mellitus; Z87.440 Personal history of urinary (tract) infections; Z90.710 Acquired absence of both cervix and uterus; Z90.49 Acquired absence of other specified parts of digestive tract; L89.151 Pressure ulcer of sacral region, stage 1
CPT/HCPCS: 31500; 36415; 36600; 51702; 70450; 71045; 78582; 80048; 80053; 80061; 80202; 81001; 82550; 82805; 82962; 83036; 83605; 83735; 83880; 84484; 85007; 85025; 85027; 85379; 85384; 85610; 85730; 87040; 87070; 87077; 87081; 87086; 87205; 87493; 87804; 92610; 93005; 93306; 93970; 94002; 94003; 94640; 96361; 96365; 96366; 96367; 96368; 96372; 96375; 96376; 97110; 97116; 97163; 97530; 99291; C9113; G0378; G9035; J0330; J1815; J2250; J2543; J2704; J3480; J7060